=== PATIENT | female | born 1970 | race Caucasian/White ===

== ENCOUNTER → 2018-06-28 | Outpatient (REF) | payer BC ==
[2018-06-28 12:20] LABS: BASO % 0.6 % (0.0-1.0); EOS # 0.1 10^3/uL (0.0-0.50); EOS % 2.7 % (0.0-3.0); HEMATOCRIT 41.9 % (36.0-47.0); HEMOGLOBIN 13.7 g/dl (12.0-15.5); LYMPH # 1.7 10^3/uL (1.5-4.5); LYMPH % 35.3 % (24.0-44.0); MEAN CORPUSCULAR HEMOGLOBIN 30.2 pg (27.0-33.0); MEAN CORPUSCULAR HGB CONC 32.7 g/dl (32.0-36.5); MEAN CORPUSCULAR VOLUME 92.5 fl (80.0-96.0); MONO # 0.3 10^3/uL (0.0-0.8); MONO % 6.8 % (0.0-5.0); NEUTROPHILS # 2.7 10^3/uL (1.8-7.7); NEUTROPHILS % 54.4 % (36.0-66.0); PLATELET COUNT, AUTOMATED 210 10^3/uL (150-450); RED BLOOD COUNT 4.53 10^6/uL (4.00-5.40); WHITE BLOOD COUNT 4.9 10^3/uL (4.0-10.0)
[2018-06-28 12:28] LABS: ALBUMIN 3.6 GM/DL (3.2-5.2); ALT/SGPT 32 U/L (12-78); BILIRUBIN,TOTAL 0.3 MG/DL (0.2-1.0); BLOOD UREA NITROGEN 13 MG/DL (7-18); CALCIUM LEVEL 8.2 MG/DL (8.5-10.1); CARBON DIOXIDE LEVEL 27 MEQ/L (21-32); CHLORIDE LEVEL 110 MEQ/L (98-107); CREATININE FOR GFR 0.71 MG/DL (0.55-1.30); GLOMERULAR FILTRATION RATE > 60.0 (>58); GLUCOSE, FASTING 85 MG/DL (70-100); POTASSIUM SERUM 4.1 MEQ/L (3.5-5.1); SODIUM LEVEL 141 MEQ/L (136-145); TOTAL PROTEIN 6.9 GM/DL (6.4-8.2)
== END ==
LOC: M SFHCPLAZ 09:50
PROVIDERS: ATTEND Physician Assistant Medical
DX: R19.7 Diarrhea, unspecified (principal)

== ENCOUNTER → 2018-06-29 | Outpatient (REF) | payer BC | LOC: M SFHCPLAZ 13:17 | PROVIDERS: ATTEND Physician Assistant Medical | DX: R19.7 Diarrhea, unspecified (principal) ==

== ENCOUNTER → 2018-06-30 | Outpatient (REF) | payer BC ==
[2018-06-30 12:41] LABS: ALBUMIN 3.3 GM/DL (3.2-5.2); ALT/SGPT 26 U/L (12-78); BILIRUBIN,TOTAL 0.3 MG/DL (0.2-1.0); BLOOD UREA NITROGEN 12 MG/DL (7-18); CARBON DIOXIDE LEVEL 25 MEQ/L (21-32); CHLORIDE LEVEL 110 MEQ/L (98-107); CHOLESTEROL LEVEL 158 MG/DL (<200); CREATININE FOR GFR 0.58 MG/DL (0.55-1.30); GLOMERULAR FILTRATION RATE > 60.0 (>58); GLUCOSE, FASTING 88 MG/DL (70-100); HDL CHOLESTEROL 40 MG/DL (>40); LDL CHOLESTEROL 103 MG/DL (<100); NON-HDL-C 118 MG/DL; POTASSIUM SERUM 3.6 MEQ/L (3.5-5.1); SODIUM LEVEL 141 MEQ/L (136-145); TOTAL PROTEIN 6.4 GM/DL (6.4-8.2); TRIGLYCERIDES LEVEL 77 MG/DL (<150)
[2018-06-30 13:59] LABS: HEMATOCRIT 40.5 % (36.0-47.0); HEMOGLOBIN 13.2 g/dl (12.0-15.5); MEAN CORPUSCULAR HEMOGLOBIN 30.3 pg (27.0-33.0); MEAN CORPUSCULAR HGB CONC 32.6 g/dl (32.0-36.5); MEAN CORPUSCULAR VOLUME 93.1 fl (80.0-96.0); PLATELET COUNT, AUTOMATED 194 10^3/uL (150-450); RED BLOOD COUNT 4.35 10^6/uL (4.00-5.40); WHITE BLOOD COUNT 3.9 10^3/uL (4.0-10.0)
[2018-06-30 15:30] LABS: HEMOGLOBIN A1c 5.5 %
== END ==
LOC: M SFHCPLAZ 08:39
PROVIDERS: ATTEND Family Medicine
DX: N92.0 Excessive and frequent menstruation with regular cycle (principal); Z13.220 Encounter for screening for lipoid disorders; Z13.1 Encounter for screening for diabetes mellitus

== ENCOUNTER → 2018-07-06 | Outpatient (REF) | payer BC ==
[2018-07-08 14:36] LABS: HPV HYBRID CAPTURE II Negative (Negative)
== END ==
LOC: M SFHCPLAZ 10:06
PROVIDERS: ATTEND Family Medicine
DX: Z12.4 Encounter for screening for malignant neoplasm of cervix (principal)
CPT/HCPCS: 87624; G0123

== ENCOUNTER → 2018-07-29 | Outpatient (CLI) | payer BC ==
--- NOTE | 2018-07-30 03:23 | REP ---
Clinical: Menorrhagia . Technique: Transabdominal pelvic ultrasound followed by transvaginal examination for better evaluation of the endometrium and adnexa with color Doppler evaluation of the ovaries. Findings: Bladder is unremarkable and measures 10.9 x 8.9 x 9.1 cm . Normal anteverted uterus measures 8.8 x 4.4 x 5.4 cm . The endometrial complex measures 9.2 mm thickness. No discrete uterine or endometrial abnormalities are appreciated. Incidental Nabothian cyst noted. Bilateral ovaries are normal in appearance. Right ovary measures 2.0 x 2.1 x 1.4 cm ; Left ovary measures 2.2 x 1.6 x 2.0 cm. No pelvic free fluid or adnexal mass lesion Impression: 1. Nabothian cysts. 2. Otherwise normal pelvic ultrasound.
--- NOTE | 2018-07-30 10:58 | REPMRS ---
Patient History The patient states she had a clinical breast exam in 06/2018. Family history of breast cancer at age 50 or over in maternal aunt, breast cancer at age 50 or over in maternal aunt, colorectal cancer at age 50 or over in maternal grandfather, prostate cancer at age 50 or over in father. 3D TOMOSYNTHESIS WAS PERFORMED. Digital Woman Screen Mammo: July 29, 2018 - Exam #: [id number] Bilateral CC and MLO view(s) were taken. Technologist: Lizbeth Gandhi, Technologist FINDINGS: The breast tissue is extremely dense which could obscure a lesion on mammography. There is no evidence of cancer on this mammogram. Assessment: BI-RADS/ACR category 2 mammogram. Benign Findings. Recommendation Routine screening mammogram of both breasts in 1 year (for women over age 40). This mammogram was interpreted with the aid of an FDA-approved computer-aided dectection system. Electronically Signed By: Raza Weeks MD 07/30/18 [id number]
== END ==
LOC: M WHC 08:20
PROVIDERS: ATTEND Family Medicine
DX: Z12.31 Encounter for screening mammogram for malignant neoplasm of breast (principal); N92.0 Excessive and frequent menstruation with regular cycle; N88.8 Other specified noninflammatory disorders of cervix uteri

== ENCOUNTER → 2018-08-02 | Outpatient (CLI) | payer BC ==
[~2018-08-02] MED LIST: E-Z-GAS II EFFERVESCENT PACKET (SODIUM BICARB./CITRIC ACID/SIMETHICONE) As Ordered ONE; E-Z-HD 98% w/w 340GM SUSP BTL As Ordered ONE; E-Z-PAQUE 96% w/w SUSP 176GM BTL As Ordered ONE
--- NOTE | 2018-08-03 10:18 | REP ---
Examination Requested: Esophagram Barium Swallow Reason For Exam/Comment: GERD Esophagram: The procedure was performed YKLER Siegel, under the direct supervision of Dr. Weeks. The images were reviewed with Dr. Weeks. A single PA chest x-ray is submitted as a braille translator film. The superior mediastinal structures are midline. The heart size is within normal limits. The lungs are clear. Liquid barium and gas producing granules were given in the erect position as well as liquid barium in the prone oblique positions in order to perform a double contrast esophagram examination. Oral and pharyngeal stages of the examination were unremarkable. Esophageal transport is efficient and there is no esophagitis, stricture, or mucosal ring noted. There is no hiatal hernia noted. Gastroesophageal reflux is demonstrated past the level of the ernestine. Impression: 1. Gastroesophageal reflux noted past the level of the ernestine. 0.6 minutes of fluoroscopy time was utilized for this procedure. Reviewed by KYLER Goetz 08/02/2018 05:35 P Electronically Signed by Raza Weeks MD 08/03/2018 10:09 A
== END ==
LOC: M RAD 08:41
PROVIDERS: ATTEND Internal Medicine Gastroenterology
DX: K21.9 Gastro-esophageal reflux disease without esophagitis (principal)

== ENCOUNTER → 2018-08-26 | Outpatient (CLI) | payer BC ==
[~2018-08-26] MED LIST changes: +CALC600T5 PO; +CELE40TA PO; -E-Z-GAS II EFFERVESCENT PACKET (SODIUM BICARB./CITRIC ACID/SIMETHICONE) As Ordered ONE; -E-Z-HD 98% w/w 340GM SUSP BTL As Ordered ONE; -E-Z-PAQUE 96% w/w SUSP 176GM BTL As Ordered ONE; +GASTROGRAFIN SOLUTION 30ML (Q9963) As Ordered ONE; +GNP250TA9 PO; +ISOVUE-370 76% 100ML VIAL (Q9967) As Ordered ONE; +MULTCAP PO; +PANT40TA3 PO; +VITA500T3 PO
[2018-08-26 10:39] LABS: BASO % 0.4 % (0.0-1.0); EOS # 0.1 10^3/uL (0.0-0.50); EOS % 1.5 % (0.0-3.0); HEMATOCRIT 39.7 % (36.0-47.0); LYMPH # 1.6 10^3/uL (1.5-4.5); LYMPH % 20.9 % (24.0-44.0); MEAN CORPUSCULAR HGB CONC 32.7 g/dl (32.0-36.5); MEAN CORPUSCULAR VOLUME 91.7 fl (80.0-96.0); MONO # 0.5 10^3/uL (0.0-0.8); MONO % 6.9 % (0.0-5.0); NEUTROPHILS # 5.3 10^3/uL (1.8-7.7); PLATELET COUNT, AUTOMATED 193 10^3/uL (150-450); RED BLOOD COUNT 4.33 10^6/uL (4.00-5.40); WHITE BLOOD COUNT 7.6 10^3/uL (4.0-10.0)
[2018-08-26 10:54] LABS: APPEARANCE, URINE CLEAR (CLEAR); BACTERIA, URINE AUTO NEGATIVE (NEGATIVE); BILIRUBIN, URINE AUTO NEGATIVE (NEGATIVE); BLOOD, URINE BLOOD 1+ (NEGATIVE); COLOR, URINE YELLOW (YELLOW); GLUCOSE, URINE (UA) AUTO NEGATIVE (NEGATIVE); KETONE, URINE AUTO NEGATIVE (NEGATIVE); LEUKOCYTE ESTERASE, URINE AUTO NEGATIVE (NEGATIVE); MUCUS, URINE SMALL (NEGATIVE); NITRITE, URINE AUTO NEGATIVE (NEGATIVE); PROTEIN, URINE AUTO NEGATIVE (NEGATIVE); RBC, URINE AUTO 3 /HPF (0-3); SPECIFIC GRAVITY URINE AUTO 1.021 (1.002-1.035); SQUAMOUS EPITHELIAL CELL UR AU 1 /HPF (0-6); UROBILINOGEN, URINE AUTO 0.2 mg/dL (0.0-2.0); WBC, URINE AUTO 1 /HPF (0-3)
[2018-08-26 11:02] LABS: ALBUMIN 3.1 GM/DL (3.2-5.2); ALT/SGPT 18 U/L (12-78); BILIRUBIN,TOTAL 0.7 MG/DL (0.2-1.0); BLOOD UREA NITROGEN 10 MG/DL (7-18); CALCIUM LEVEL 8.2 MG/DL (8.5-10.1); CARBON DIOXIDE LEVEL 27 MEQ/L (21-32); CHLORIDE LEVEL 108 MEQ/L (98-107); CREATININE FOR GFR 0.64 MG/DL (0.55-1.30); GLOMERULAR FILTRATION RATE > 60.0 (>58); GLUCOSE, FASTING 91 MG/DL (70-100); LIPASE 46 U/L (73-393); POTASSIUM SERUM 3.8 MEQ/L (3.5-5.1); SODIUM LEVEL 140 MEQ/L (136-145); TOTAL PROTEIN 7.3 GM/DL (6.4-8.2)
== END ==
LOC: M RAD 09:43
PROVIDERS: ATTEND Family Medicine
DX: R10.32 Left lower quadrant pain (principal); R30.0 Dysuria
CPT/HCPCS: 36415; 74178; 80053; 81001; 83690; 85025; 87086; Q9963; Q9967

== ENCOUNTER → 2018-09-02 | Outpatient (CLI) | payer BC ==
[~2018-09-02] MED LIST changes: -GASTROGRAFIN SOLUTION 30ML (Q9963) As Ordered ONE; -ISOVUE-370 76% 100ML VIAL (Q9967) As Ordered ONE
== END ==
LOC: M LAB 09:55
PROVIDERS: ATTEND Internal Medicine Gastroenterology
DX: B19.20 Unspecified viral hepatitis C without hepatic coma (principal); K21.9 Gastro-esophageal reflux disease without esophagitis

== ENCOUNTER → 2018-09-02 | Outpatient (REF) | payer BC ==
[2018-09-02 11:27] LABS: FREE T4 0.91 NG/DL (0.76-1.46); THYROID STIMULATING HORMONE 3.91 uIU/ML (0.358-3.740)
== END ==
LOC: M SFHCPLAZ 08:39
PROVIDERS: ATTEND Family Medicine
DX: E03.9 Hypothyroidism, unspecified (principal); E55.9 Vitamin D deficiency, unspecified

== ENCOUNTER 2018-09-25 20:28 | Emergency (ER) | payer BC ==
[~2018-09-25] VITALS: Ht 157.5 cm; Wt 90.1 kg
[~2018-09-25 20:28] MED LIST changes: +CYAN500T8 PO; -VITA500T3 PO
[2018-09-25] MEDS ORDERED: RABIES VACCINE HUMAN 2.5 INTERNATIONAL UNITS/ML VIAL (90675) IM ONE (21:30)
[2018-09-25] MEDS ORDERED: RABIES IMMUNE GLOBULIN 1500 INTERNATIONAL UNIT/5ML VIAL (90375) IM ONE ×2 (21:30→21:45)
[2018-09-25] MEDS ORDERED: RABIES IMMUNE GLOBULIN 300 INTERNATIONAL UNITS/1ML VIAL (90375) IM ONE (21:45)
[2018-09-25] MEDS ORDERED: AUGM875T28 PO (21:49)
[2018-09-25] MEDS ORDERED: AUGMENTIN 875 MG TAB PO ONE (22:00)
[2018-09-25 22:59] VITALS: BP 119/63
== END 2018-09-25 22:59 | disposition home or self-care (01) ==
LOC: M ED 20:28
DX: S60.473A Other superficial bite of left middle finger, initial encounter (principal); W55.01XA Bitten by cat, initial encounter; Y92.89 Other specified places as the place of occurrence of the external cause; J45.909 Unspecified asthma, uncomplicated; G47.33 Obstructive sleep apnea (adult) (pediatric); K21.9 Gastro-esophageal reflux disease without esophagitis; Z88.5 Allergy status to narcotic agent; Z79.899 Other long term (current) drug therapy

== ENCOUNTER 2018-09-28 10:12 | Emergency (ER) | payer BC, OTHER ==
[~2018-09-28] VITALS: Ht 157.5 cm; Wt 90.1 kg
[~2018-09-28 10:12] MED LIST changes: +AUGM875T28 PO
[2018-09-28] MEDS ORDERED: RABIES VACCINE HUMAN 2.5 INTERNATIONAL UNITS/ML VIAL (90675) IM ONE (10:45)
[2018-09-28 11:10] VITALS: BP 106/72
[2018-11-22] MEDS ORDERED: DULO1CAP5 PO (09:29)
[2018-11-22] MEDS ORDERED: SYNT25TA PO (09:29)
== END 2018-09-28 11:09 | disposition home or self-care (01) ==
LOC: M ED 10:12
DX: Z23 Encounter for immunization (principal); Z20.3 Contact with and (suspected) exposure to rabies; Z88.5 Allergy status to narcotic agent; Z79.899 Other long term (current) drug therapy

== ENCOUNTER 2018-10-02 09:24 | Emergency (ER) | payer BC ==
[~2018-10-02] VITALS: Ht 157.5 cm; Wt 89.1 kg
[2018-10-02] MEDS ORDERED: RABIES VACCINE HUMAN 2.5 INTERNATIONAL UNITS/ML VIAL (90675) IM ONE (09:45)
[2018-10-02 11:48] VITALS: BP 119/75
[2018-10-02] MEDS ORDERED: VANC1CAP6 PO (14:41)
== END 2018-10-02 11:50 | disposition home or self-care (01) ==
LOC: M ED 09:44
DX: Z23 Encounter for immunization (principal); Z20.3 Contact with and (suspected) exposure to rabies; R19.7 Diarrhea, unspecified; F33.9 Major depressive disorder, recurrent, unspecified; F41.9 Anxiety disorder, unspecified; G47.30 Sleep apnea, unspecified; Z99.89 Dependence on other enabling machines and devices; Z79.899 Other long term (current) drug therapy; Z88.5 Allergy status to narcotic agent

== ENCOUNTER 2018-10-09 10:43 | Emergency (ER) | payer BC, OTHER ==
[~2018-10-09] VITALS: Ht 157.5 cm; Wt 89.1 kg
[~2018-10-09 10:43] MED LIST changes: +VANC1CAP6 PO
[2018-10-09 10:44] VITALS: BP 123/80
[2018-10-09] MEDS ORDERED: RABIES VACCINE HUMAN 2.5 INTERNATIONAL UNITS/ML VIAL (90675) IM ONE (11:00)
== END 2018-10-09 11:21 | disposition home or self-care (01) ==
LOC: M ED 10:43
DX: Z23 Encounter for immunization (principal); Z20.3 Contact with and (suspected) exposure to rabies; K21.9 Gastro-esophageal reflux disease without esophagitis; Z72.0 Tobacco use; Z79.899 Other long term (current) drug therapy; Z88.5 Allergy status to narcotic agent

== ENCOUNTER → 2018-10-21 | Outpatient (REF) | payer BC ==
[2018-10-21 11:12] LABS: APPEARANCE, URINE CLEAR (CLEAR); BACTERIA, URINE AUTO NEGATIVE (NEGATIVE); BILIRUBIN, URINE AUTO NEGATIVE (NEGATIVE); BLOOD, URINE BLOOD NEGATIVE (NEGATIVE); COLOR, URINE STRAW (YELLOW); GLUCOSE, URINE (UA) AUTO NEGATIVE (NEGATIVE); KETONE, URINE AUTO NEGATIVE (NEGATIVE); LEUKOCYTE ESTERASE, URINE AUTO NEGATIVE (NEGATIVE); NITRITE, URINE AUTO NEGATIVE (NEGATIVE); PROTEIN, URINE AUTO NEGATIVE (NEGATIVE); RBC, URINE AUTO 1 /HPF (0-3); SPECIFIC GRAVITY URINE AUTO 1.006 (1.002-1.035); SQUAMOUS EPITHELIAL CELL UR AU 1 /HPF (0-6); UROBILINOGEN, URINE AUTO 0.2 mg/dL (0.0-2.0); WBC, URINE AUTO 0 /HPF (0-3)
== END ==
LOC: M SFHCPLAZ 08:06
PROVIDERS: ATTEND Family Medicine
DX: E03.9 Hypothyroidism, unspecified (principal); N39.44 Nocturnal enuresis

== ENCOUNTER → 2018-11-03 | Outpatient (CLI) | payer BC ==
--- NOTE | 2018-11-08 10:54 | SLEEPCENT ---
DATE OF PROCEDURE: 11/17/2018 ORDERED BY: Kaylie Parikh NP Nocturnal polysomnography was performed for the titration of pressure therapy in this patient with obstructive sleep apnea syndrome. Apnea-hypopnea index 25.8. For testing, a ResMed Quattro Mirage full face mask of small size was used, 4 cm of water pressure were applied to the circuit, and the lights were extinguished. 7 hours and 16 minutes of data were reviewed. There were 390 minutes of sleep identified. Sleep latency was short at 4.5 minutes. Rapid eye movement (REM) latency was mildly prolonged at 159 minutes. Sleep architecture improved with optimal pressure therapy. Overall sleep efficiency was 92.6%. The patient's electrocardiogram showed sinus rhythm with an average heart rate of 62 beats per minute. Electroencephalogram (EEG) showed normal waveforms for awake and sleep. Respiratory events were fully palliated with C-PAP to a pressure of +12. There was some limb activity noted in the EMG leads. Limb movement arousal index on this occasion was 12.1. IMPRESSION: Obstructive sleep apnea syndrome (G47.33). RECOMMENDATIONS: Nightly use of pressure therapy 12 cm of water.
== END ==
LOC: M SLEEP 20:00
PROVIDERS: ATTEND Nurse Practitioner Family
DX: G47.33 Obstructive sleep apnea (adult) (pediatric) (principal); R06.83 Snoring

== ENCOUNTER 2018-12-06 11:10 | Day surgery (SDC) | payer BC ==
[~2018-12-06] VITALS: Ht 157.5 cm; Wt 89.8 kg
[~2018-12-06 11:10] MED LIST changes: +DULO1CAP5 PO; +NS 1,000 ML IV ONE; +SYNT25TA PO
[2018-12-06] MEDS ORDERED: LIDOCAINE 2% INJ 100 MG/5 ML SDV (FOR ANES.) As Ordered ONE (11:56)
[2018-12-06] MEDS ORDERED: PROPOFOL 500 MG/50 ML VIAL As Ordered ONE (11:56)
[2018-12-06] MEDS ORDERED: fentaNYL 100 MCG/2 ML INJECTION (J3010) As Ordered ONE (13:18)
--- NOTE | 2018-12-06 13:34 | ROOR ---
Patient Name: Shari Hyatt Procedure Date: 12/06/2018 1:21 PM Date of : 1970 Age: 48 Room: [facility] Gender: Female Note Status: Finalized Procedure: Upper GI endoscopy Indications: Heartburn Providers: Aaron RAMIREZ MD Referring MD: Rochelle Duncan MD Requesting Provider: Medicines: Monitored Anesthesia Care Complications: No immediate complications. Procedure: Pre-Anesthesia Assessment: - The heart rate, respiratory rate, oxygen saturations, blood pressure, adequacy of pulmonary ventilation, and response to care were monitored throughout the procedure. The Endoscope was introduced through the mouth, and advanced to the second part of duodenum. The upper GI endoscopy was accomplished without difficulty. The patient tolerated the procedure well. Findings: Non-severe esophagitis was found at the gastroesophageal junction. No endoscopic abnormality was evident in the esophagus to explain the patient's complaint of dysphagia. The entire examined stomach was normal. The examined duodenum was normal. Impression: - Mild reflux esophagitis. - No endoscopic esophageal abnormality to explain patient's dysphagia. - Normal stomach. - Normal examined duodenum. - No specimens collected. Recommendation: - Use Zantac (ranitidine) 150 mg PO BID. - Follow an antireflux regimen. Aaron Ramirez MD Aaron RAMIREZ MD 12/06/2018 1:34:22 PM Electronically signed by Aaron RAMIREZ MD Number of Addenda: 0 Note Initiated On: 12/06/2018 1:21 PM Estimated Blood Loss: Estimated blood loss: none.
--- NOTE | 2018-12-06 13:48 | ROOR ---
Patient Name: Shari Hyatt Procedure Date: 12/06/2018 1:22 PM Date of : 1970 Age: 48 Room: [facility] Gender: Female Note Status: Finalized Procedure: Colonoscopy Indications: Abnormal CT of the GI tract, Follow-up of diverticulitis Providers: Aaron RAMIREZ MD Referring MD: Rochelle Duncan MD Requesting Provider: Medicines: Monitored Anesthesia Care Complications: No immediate complications. Procedure: Pre-Anesthesia Assessment: - The heart rate, respiratory rate, oxygen saturations, blood pressure, adequacy of pulmonary ventilation, and response to care were monitored throughout the procedure. The Colonoscope was introduced through the anus and advanced to 10 cm into the ileum. The colonoscopy was performed without difficulty. The patient tolerated the procedure well. The quality of the bowel preparation was good. Findings: The perianal and digital rectal examinations were normal. Mild sigmoid diverticulosis and small internal hemorrhoids. The entire examined colon appeared normal on direct and retroflexion views. The terminal ileum appeared normal. Impression: - Minimal sigmoid diverticulosis and small internal hemorrhoids. - The entire colon is otherwise normal on direct and retroflexion views. - The examined portion of the ileum was normal. - No specimens collected. Recommendation: - Use fiber, for example Citrucel, Fibercon, Konsyl or Metamucil. Aaron Ramirez MD Aaron RAMIREZ MD 12/06/2018 1:47:15 PM Electronically signed by Aaron RAMIREZ MD Number of Addenda: 0 Note Initiated On: 12/06/2018 1:22 PM Estimated Blood Loss: Estimated blood loss: none.
[2018-12-06 14:20] VITALS: BP 129/80
== END 2018-12-06 14:33 | disposition home or self-care (01) ==
LOC: M OPP 11:10
PROVIDERS: ATTEND Internal Medicine Gastroenterology
DX: K57.30 Diverticulosis of large intestine without perforation or abscess without bleeding (principal); K64.8 Other hemorrhoids; R93.3 Abnormal findings on diagnostic imaging of other parts of digestive tract; K21.0 Gastro-esophageal reflux disease with esophagitis; R13.10 Dysphagia, unspecified; R12 Heartburn; G47.30 Sleep apnea, unspecified; Z79.899 Other long term (current) drug therapy; Z88.5 Allergy status to narcotic agent
CPT/HCPCS: 43235; 45378; J3010

== ENCOUNTER → 2019-01-05 | Outpatient (REF) | payer BC ==
[~2019-01-05] MED LIST changes: -NS 1,000 ML IV ONE
== END ==
LOC: M LAB REF 17:42
PROVIDERS: ATTEND Obstetrics & Gynecology
DX: N93.9 Abnormal uterine and vaginal bleeding, unspecified (principal)

== ENCOUNTER → 2019-01-22 | Outpatient (CLI) | payer BC ==
[~2019-01-22] MED LIST changes: +IBUP1TAB7 PO; +OXYC1TAB23 PO
--- NOTE | 2019-01-22 18:45 | ECGEPIP ---
[facility] Test Date: 2019-01-22 Pat Name: STEPHANIE PRESTON Department: Room: - Gender: Female Business Dean: SHAQ : 1970 Requested By: Mathieu Manning Order Number: [id number] Reading MD: Aaron Masters Measurements Intervals [place] Rate: 72 P: 62 GA: 167 QRS: -23 QRSD: 84 T: 25 QT: 407 QTc: 447 Interpretive Statements SINUS RHYTHM LEFT AXIS DEVIATION LOW QRS VOLTAGES, Poor R wave progression. Baseline noise V5 & V6. No prior ECG available for comparison at the time of interpretation. Electronically Signed on 01-22-2019 18:45:41 EDT by Aaron Masters
== END ==
LOC: M EKG 08:41
PROVIDERS: ATTEND Anesthesiology
DX: Z01.818 Encounter for other preprocedural examination (principal); R94.31 Abnormal electrocardiogram [ECG] [EKG]; E03.9 Hypothyroidism, unspecified

== ENCOUNTER 2019-01-25 06:00 | Day surgery (SDC) | payer BC ==
[~2019-01-25] VITALS: Ht 157.5 cm; Wt 92.3 kg
[~2019-01-25 06:00] MED LIST changes: -IBUP1TAB7 PO; +LR 1,000 ML IV ONE; -OXYC1TAB23 PO
[2019-01-25] MEDS ORDERED: MULTCAP PO (06:20)
[2019-01-25 06:27] LABS: HEMATOCRIT 40.8 % (36.0-47.0); HEMOGLOBIN 13.6 g/dl (12.0-15.5); MEAN CORPUSCULAR HGB CONC 33.3 g/dl (32.0-36.5); MEAN CORPUSCULAR VOLUME 92.9 fl (80.0-96.0); PLATELET COUNT, AUTOMATED 212 10^3/uL (150-450); RED BLOOD COUNT 4.39 10^6/uL (4.00-5.40); WHITE BLOOD COUNT 4.5 10^3/uL (4.0-10.0)
[2019-01-25] MEDS ORDERED: fentaNYL 100 MCG/2 ML INJECTION (J3010) As Ordered ONE (07:07)
[2019-01-25] MEDS ORDERED: LIDOCAINE 2% INJ 100 MG/5 ML SDV (FOR ANES.) As Ordered ONE (07:07)
[2019-01-25] MEDS ORDERED: PROPOFOL 200 MG/20 ML VIAL As Ordered ONE ×2 (07:07→08:05)
[2019-01-25] MEDS ORDERED: MIDAZOLAM INJ 2 MG/2 ML VIAL (J2250) As Ordered ONE (07:07)
[2019-01-25] MEDS ORDERED: dexameTHASONE 4 MG/ML 1ML VIAL (J1100) As Ordered ONE (07:50)
[2019-01-25] MEDS ORDERED: ONDANSETRON 4MG/2ML VIAL (J2405) As Ordered ONE ×2 (07:50→10:12)
[2019-01-25] MEDS ORDERED: KETOROLAC 60 MG/2 ML VIAL (J1885) As Ordered ONE (08:06)
[2019-01-25] MEDS ORDERED: OXYC1TAB23 PO (08:28)
[2019-01-25] MEDS ORDERED: IBUP1TAB7 PO (08:28)
[2019-01-25] MEDS ORDERED: ONDANSETRON 4MG/2ML VIAL (J2405) IV PRN (08:45)
[2019-01-25] MEDS ORDERED: LR 1,000 ML IV SCH ×2 (08:45→09:46)
[2019-01-25] MEDS: oxyCODONE 5MG TAB PO PRN ×2 (08:57→09:28)
[2019-01-25] MEDS: fentaNYL 100 MCG/2 ML INJECTION (J3010) IV PRN ×2 (09:05→09:10)
--- NOTE | 2019-01-25 09:17 | RO ---
DATE OF PROCEDURE: 01/25/2019 PREOPERATIVE DIAGNOSIS: Abnormal uterine bleeding. POSTOPERATIVE DIAGNOSIS: Abnormal uterine bleeding. PROCEDURE PERFORMED: Hysteroscopy dilatation and curettage, NovaSure endometrial ablation. SURGEON: Christo Bernardo DO SYSTEMS SOFTWARE ENGINEER: None. ANESTHESIA TYPE: General via laryngeal mask airway (LMA). SPECIMENS TO PATHOLOGY: Endometrial curettings. ESTIMATED BLOOD LOSS: 5 mL. FLUIDS REPLACED: 1 liter Lactated Ringer's. DRAINS: In and out catheter 100 mL. COMPLICATIONS: None. PREOPERATIVE ANTIBIOTICS: None indicated. INTRAOPERATIVE FINDINGS: Uterine cavity length 6.5 cm, width 3.4 cm. Ablation time 70 seconds at 122 rodriguez. Hysteroscopic findings pre-ablation: no intrauterine mass detected. No evidence of uterine perforation. Post ablation hysteroscopic findings: global ablation noted and again no uterine masses and no evidence of uterine perforation. INDICATION: The patient is a 48-year-old with abnormal uterine bleeding. Preoperative assessment deemed her a good candidate for an endometrial ablation. She has chosen to proceed with this procedure over other options. Preoperative endometrial tissue assessment: benign. PROCEDURE: The patient was counseled and consented on the risks, benefits, indications and alternatives to the procedure. Informed consent was obtained. She was taken to the operating room with an IV running and placed on operating table in the dorsal supine position. General anesthesia was administered and the airway was secured without any difficulty. She was placed in the high lithotomy position. A time out was performed per protocol. She was prepared and draped in a normal sterile fashion. The bladder was drained with an in and out sterile catheter. A speculum was placed with good visualization of the cervix. The anterior lip of the cervix was grasped with a single-tooth tenaculum downward traction was applied. The uterus was sounded to 8 cm, thus giving a cavity length of 6.5 cm given the cervical length of 1.5cm. The cervix was sequentially dilated with Lenny dilators up to #15. The hysteroscope was placed transcervically into the intrauterine cavity with findings noted above. Given the normal uterine cavity, the hysteroscope was removed. Light curettage was performed throughout the cavity. The tissue was sent to pathology for permanent section. The NovaSure device was placed transcervically into the intrauterine cavity and deployed. The cavity width assessment was performed. The cavity assessment was activated. The cavity assessment passed and the NovaSure device was activated. Total ablation time was 70 seconds. The NovaSure device was removed in a typical fashion. Charred tissue was noted on both sides of the mesh after the NovaSure device was removed and inspected. The hysteroscope was placed transcervically into the intrauterine cavity with findings noted above. Given the lack of any evidence of a complication and global ablation was noted throughout the cavity, decision was made to conclude the procedure. The hysteroscope was removed. The single-tooth tenaculum was removed from the anterior lip of the cervix. Tenaculum sites were noted be hemostatic. Minimal bleeding from the cervical os was noted. All instruments removed from the vagina. Sponge, needle and instrument counts were correct per protocol. The patient tolerated the entire procedure well. She was transferred to the postanesthesia care unit (PACU) in good and stable condition. MONO
[2019-01-25] MEDS ORDERED: MORPHINE 2 MG/ML 1ML VIAL (J2270) As Ordered ONE (11:21)
[2019-01-25] MEDS: MORPHINE 2 MG/ML 1ML VIAL (J2270) IV PRN ×2 (11:27→11:52)
[2019-01-25] MEDS ORDERED: MORPHINE 10 MG/ML 1ML VIAL (J2270) IV PRN (11:30)
[2019-01-25 12:15] VITALS: BP 135/80
== END 2019-01-25 12:45 | disposition home or self-care (01) ==
LOC: M SDC 06:00
PROVIDERS: ATTEND Obstetrics & Gynecology
DX: N93.9 Abnormal uterine and vaginal bleeding, unspecified (principal); E03.9 Hypothyroidism, unspecified; K21.9 Gastro-esophageal reflux disease without esophagitis; F32.9 Major depressive disorder, single episode, unspecified; K57.32 Diverticulitis of large intestine without perforation or abscess without bleeding; M12.9 Arthropathy, unspecified; F41.9 Anxiety disorder, unspecified; G43.909 Migraine, unspecified, not intractable, without status migrainosus; J45.909 Unspecified asthma, uncomplicated; G47.33 Obstructive sleep apnea (adult) (pediatric); Z88.5 Allergy status to narcotic agent; Z79.899 Other long term (current) drug therapy; Z86.19 Personal history of other infectious and parasitic diseases; Z98.51 Tubal ligation status; Z68.37 Body mass index [BMI] 37.0-37.9, adult
CPT/HCPCS: 36415; 58563; 85027; 86850; 86900; 86901; 88305; J1100; J1885; J2250; J2270; J2405; J3010

== ENCOUNTER → 2019-03-25 | Outpatient (CLI) | payer BC ==
[~2019-03-25] MED LIST changes: +IBUP1TAB7 PO; +ISOVUE-370 76% 100ML VIAL (Q9967) As Ordered ONE; -LR 1,000 ML IV ONE; +OXYC1TAB23 PO
--- NOTE | 2019-03-25 10:03 | REP ---
Clinical: Lung nodule. Technique: Axial contrast enhanced images from the thoracic inlet to the upper abdomen with coronal and sagittal re-formations. Comparison: None. Findings: 6 mm noncalcified nodule in the periphery of the left lower lobe (image 72) remains stable and a second 5 mm noncalcified nodule in the periphery of the left lower lobe (image 69) remains stable as well. 7 mm noncalcified nodule noted in the periphery of the anterior right upper lobe (image 47) and 4 mm noncalcified nodule in the periphery of the right lower lobe (image 47) are also identified. No further nodule or mass lesion. No consolidation. No effusion. No pneumothorax. Tracheobronchial tree is patent. No axillary, hilar, or mediastinal adenopathy is appreciated. Mediastinum demonstrates normal thoracic aorta, pulmonary vasculature and heart/pericardium. Surrounding musculoskeletal structures are intact and normal. Limited upper abdomen demonstrates diffuse hepatic steatosis and normal bilateral adrenal glands. Impression: 1. Few scattered noncalcified nodules likely reflect sequelae from prior granulomas disease. No adenopathy. Consider follow-up examination at 6-9 months to confirm stability and benignity. Electronically Signed by James Rain MD 03/25/2019 09:55 A
== END ==
LOC: M RAD 09:00
PROVIDERS: ATTEND Family Medicine
DX: R91.1 Solitary pulmonary nodule (principal)
CPT/HCPCS: 71260; Q9967

== ENCOUNTER → 2019-05-12 | Outpatient (REF) | payer BC ==
[~2019-05-12] MED LIST changes: -ISOVUE-370 76% 100ML VIAL (Q9967) As Ordered ONE
[2019-05-12 11:54] LABS: FREE T4 0.85 NG/DL (0.76-1.46); THYROID STIMULATING HORMONE 2.11 uIU/ML (0.358-3.740); TOTAL 25(OH) VITAMIN D 26.8 NG/ML (30.0-100.0)
== END ==
LOC: M SFHCPLAZ 08:34
PROVIDERS: ATTEND Family Medicine
DX: E03.9 Hypothyroidism, unspecified (principal); E55.9 Vitamin D deficiency, unspecified

== ENCOUNTER 2019-11-24 00:53 | Emergency (ER) | payer BC, MEDICAID, OTHER ==
[~2019-11-24] VITALS: Ht 157.5 cm; Wt 99.4 kg
[~2019-11-24 00:53] MED LIST changes: -CALC600T5 PO; +CALC600T61 PO; +PANT40TA29 PO; -PANT40TA3 PO
[2019-11-24] MEDS ORDERED: BUSP15TA47 PO (01:03)
[2019-11-24] MEDS ORDERED: VIIB40TA PO (01:03)
[2019-11-24 01:55] LABS: BASO % 0.4 % (0.0-1.0); EOS # 0.2 10^3/uL (0.0-0.5); HEMATOCRIT 41.1 % (36.0-47.0); LYMPH # 2.2 10^3/uL (1.5-5.0); LYMPH % 24.3 % (24.0-44.0); MEAN CORPUSCULAR HEMOGLOBIN 31.1 pg (27.0-33.0); MEAN CORPUSCULAR HGB CONC 34.1 g/dl (32.0-36.5); MEAN CORPUSCULAR VOLUME 91.3 fl (80.0-96.0); MONO # 0.6 10^3/uL (0.0-0.8); MONO % 6.9 % (0.0-5.0); NEUTROPHILS # 5.9 10^3/uL (1.5-8.5); NEUTROPHILS % 66.2 % (36.0-66.0); PLATELET COUNT, AUTOMATED 202 10^3/uL (150-450)
[2019-11-24] MEDS ORDERED: NS 1,000 ML IV ONE (02:15)
[2019-11-24] MEDS ORDERED: MORPHINE 4 MG/ML 1ML VIAL/SYRINGE (J2270) IV ONE (02:15)
[2019-11-24 02:39] LABS: ALBUMIN 3.3 GM/DL (3.2-5.2); ALT/SGPT 25 U/L (12-78); BILIRUBIN,DIRECT < 0.1 MG/DL (0.0-0.2); BILIRUBIN,TOTAL 0.2 MG/DL (0.2-1.0); BLOOD UREA NITROGEN 12 MG/DL (7-18); CALCIUM LEVEL 8.6 MG/DL (8.5-10.1); CARBON DIOXIDE LEVEL 24 MEQ/L (21-32); CHLORIDE LEVEL 111 MEQ/L (98-107); CREATININE FOR GFR 0.83 MG/DL (0.55-1.30); GLOMERULAR FILTRATION RATE > 60.0 (>51); GLUCOSE, FASTING 123 MG/DL (70-100); LIPASE 60 U/L (73-393); POTASSIUM SERUM 3.9 MEQ/L (3.5-5.1); SODIUM LEVEL 144 MEQ/L (136-145); TOTAL PROTEIN 6.7 GM/DL (6.4-8.2)
[2019-11-24] MEDS ORDERED: ISOVUE-370 76% 100ML VIAL As Ordered ONE (03:00)
--- NOTE | 2019-11-24 03:54 | REPVR ---
PROCEDURE INFORMATION: Exam: CT Abdomen And Pelvis With Contrast Exam date and time: 11/24/2019 2:54 AM Age: 49 years old Clinical indication: Abdominal pain; Localized; Left lower quadrant (llq); Additional info: Llq pain TECHNIQUE: Imaging protocol: Computed tomography of the abdomen and pelvis with intravenous contrast. Radiation optimization: All CT scans at this facility use at least one of these dose optimization techniques: automated exposure control; mA and/or kV adjustment per patient size (includes targeted exams where dose is matched to clinical indication); or iterative reconstruction. Contrast material: ISO; Contrast volume: 100 ml; Contrast route: INTRAVENOUS (IV); COMPARISON: CT ABD PELVIS W/O FOL BY WIT 08/26/2018 11:32 AM FINDINGS: Lungs: Stable 2 nodules in the anter left lower lobe of the lung. Liver: Heterogen diffuse fatty infiltration of the liver with areas of sparing. Gallbladder and bile ducts: Normal. No calcified stones. No ductal dilation. Pancreas: Normal. No ductal dilation. Spleen: Normal. No splenomegaly. Adrenals: Normal. No mass. Kidneys and ureters: Normal. No hydronephrosis. Stomach and bowel: Mild thickening, diverticula, and mild surrounding inflammation of the proximal sigmoid colon representing diverticulitis/colitis. No perforation. No abscess formation. Small bowel is unremarkable. Appendix: Appendix is not seen. Intraperitoneal space: Trace free fluid in the pelvis. Vasculature: Unremarkable. No abdominal aortic aneurysm. Lymph nodes: Unremarkable. No enlarged lymph nodes. Bladder: Unremarkable as visualized. Reproductive: Dominant follicle in the left ovary measuring 13.4 mm. Prominence of the endometrial canal likely related to menstrual cycle. Air in the vagina. Low-attenuation area with irregular margins in the right ovary measuring 12.3 mm likely ruptured follicle. Bones/joints: Unremarkable. No acute fracture. Soft tissues: Unremarkable. IMPRESSION: Mild thickening, diverticula, and mild surrounding inflammation of the proximal sigmoid colon representing diverticulitis/colitis. No perforation. No abscess formation. Electronically signed by: Niki Ng On 11/24/2019 03:54:23 AM
[2019-11-24] MEDS ORDERED: CIPROFLOXACIN 400 MG in IV 1 EA IV ONE (04:00)
[2019-11-24] MEDS ORDERED: metroNIDAZOLE 500 MG in IV 1 EA IV ONE (04:00)
[2019-11-24] MEDS ORDERED: FLAG500T PO (04:09)
[2019-11-24] MEDS ORDERED: CIPR-249 PO (04:09)
[2019-11-24] MEDS ORDERED: NORCO 5/325MG TABLET (BULK FOR ED) PO ONE (04:15)
[2019-11-24] MEDS ORDERED: MORPHINE 2 MG/ML 1ML VIAL (J2270) IV ONE (05:30)
[2019-11-24] MEDS ORDERED: METOCLOPRAMIDE INJ 10MG/2ML VIAL (J2765 PER 1) As Ordered ONE (05:45)
[2019-11-24] MEDS ORDERED: METOCLOPRAMIDE INJ 10MG/2ML VIAL (J2765 PER 1) IV ONE (05:45)
[2019-11-24 06:30] VITALS: BP 103/65
== END 2019-11-24 07:12 | disposition home or self-care (01) ==
LOC: M ED 00:53
DX: K57.32 Diverticulitis of large intestine without perforation or abscess without bleeding (principal); F32.9 Major depressive disorder, single episode, unspecified; E66.9 Obesity, unspecified; Z79.899 Other long term (current) drug therapy; Z88.5 Allergy status to narcotic agent
CPT/HCPCS: 74177; 80048; 80076; 81001; 83690; 85025; 96365; 96367; 96375; 96376; 99284; J0744; J2270; J2765; Q9967

== ENCOUNTER 2019-12-03 19:42 | Emergency (ER) | payer BC, MEDICAID, OTHER ==
[~2019-12-03] VITALS: Ht 157.5 cm; Wt 99.5 kg
[~2019-12-03 19:42] MED LIST changes: +BUSP15TA47 PO; +CIPR-249 PO; +FLAG500T PO; +VIIB40TA PO
[2019-12-03] MEDS ORDERED: NS 1,000 ML IV ONE (20:30)
[2019-12-03 20:31] LABS: BASO % 0.4 % (0.0-1.0); EOS # 0.2 10^3/uL (0.0-0.5); EOS % 2.5 % (0.0-3.0); HEMATOCRIT 40.6 % (36.0-47.0); HEMOGLOBIN 13.2 g/dl (12.0-15.5); LYMPH # 2.3 10^3/uL (1.5-5.0); MEAN CORPUSCULAR HEMOGLOBIN 30.3 pg (27.0-33.0); MEAN CORPUSCULAR HGB CONC 32.5 g/dl (32.0-36.5); MEAN CORPUSCULAR VOLUME 93.3 fl (80.0-96.0); MONO # 0.5 10^3/uL (0.0-0.8); MONO % 7.9 % (0.0-5.0); NEUTROPHILS # 3.7 10^3/uL (1.5-8.5); NEUTROPHILS % 54.8 % (36.0-66.0); PLATELET COUNT, AUTOMATED 267 10^3/uL (150-450); RED BLOOD COUNT 4.35 10^6/uL (4.00-5.40); WHITE BLOOD COUNT 6.7 10^3/uL (4.0-10.0)
[2019-12-03] MEDS ORDERED: ISOVUE-370 76% 100ML VIAL As Ordered ONE (20:39)
[2019-12-03 20:59] LABS: ALBUMIN 3.3 GM/DL (3.2-5.2); ALT/SGPT 19 U/L (12-78); BILIRUBIN,DIRECT < 0.1 MG/DL (0.0-0.2); BILIRUBIN,TOTAL 0.1 MG/DL (0.2-1.0); CK-MB VALUE MASS 1.8 NG/ML (<3.6); CPK CREATINE PHOSPHOKINASE 170 U/L (26-192); LIPASE 70 U/L (73-393); MB/CK RELATIVE INDEX 1.06 (< OR =4); TOTAL PROTEIN 6.7 GM/DL (6.4-8.2); TROPONIN I < 0.02 NG/ML (< 0.10)
--- NOTE | 2019-12-03 21:21 | REPVR ---
PROCEDURE INFORMATION: Exam: CT Abdomen And Pelvis With Contrast Exam date and time: 12/03/2019 8:53 PM Age: 49 years old Clinical indication: Abdominal pain; Other: Abd pain with bloating TECHNIQUE: Imaging protocol: Computed tomography of the abdomen and pelvis with intravenous contrast. Radiation optimization: All CT scans at this facility use at least one of these dose optimization techniques: automated exposure control; mA and/or kV adjustment per patient size (includes targeted exams where dose is matched to clinical indication); or iterative reconstruction. Contrast material: ISOVUE 370; Contrast volume: 100 ml; Contrast route: INTRAVENOUS (IV); COMPARISON: CT ABD/PEL W/IV CONTRAST ONLY 11/24/2019 3:03 AM FINDINGS: Liver: The liver attenuation is 54 Hounsfield units and the spleen is 119 Hounsfield units. Gallbladder and bile ducts: The gallbladder is contracted with no stones. Pancreas: Normal. No ductal dilation. Spleen: Normal. No splenomegaly. Adrenals: Slight fullness of the left adrenal which is unchanged from the prior study. A 10 mm nodule with a Hounsfield measurement of 71 is not excluded. Kidneys and ureters: Normal. No hydronephrosis. Stomach and bowel: Borderline distention of the stomach with food material. Mild colonic diverticulosis without diverticulitis. Appendix: A normal appendix is seen. Intraperitoneal space: Unremarkable. No free air. No significant fluid collection. Vasculature: Unremarkable. No abdominal aortic aneurysm. Lymph nodes: Unremarkable. No enlarged lymph nodes. Bladder: Unremarkable as visualized. Reproductive: Unremarkable as visualized. Bones/joints: Unremarkable. No acute fracture. Soft tissues: Minimal fat filled umbilical hernia. IMPRESSION: 1. There has been little change from 11/24/2019. No acute interval process is identified. 2. Fatty infiltration of the liver. 3. There is borderline distention of the stomach which in view of a contracted gallbladder likely reflects recent ingestion. 4. Question of 1 cm nodule of the left adrenal which is unchanged. 5. Mild colonic diverticulosis without diverticulitis. Electronically signed by: Bhavin Rivera On 12/03/2019 21:21:39 PM
[2019-12-03] MEDS ORDERED: GI COCKTAIL 50ML BTL(HYOSCYAMINE/MAALOX/LIDOCAINE VISCOUS)(1:3:1) PO ONE (22:45)
[2019-12-03] MEDS ORDERED: SIMETHICONE 80 MG CHEW TAB PO ONE (23:15)
[2019-12-03 23:53] VITALS: BP 126/65
--- NOTE | 2019-12-27 10:20 | ECGEPIP ---
[facility] - ED Test Date: 2019-12-03 Pat Name: STEPHANIE HARDIN Department: Room: - Gender: Female Dandy Operator: peter : 1970 Requested By: DONOVAN MCGRATH Order Number: [id number] Reading MD: Oh Trevino-Weeks Measurements Intervals [place] Rate: 86 P: 56 VA: 169 QRS: -34 QRSD: 84 T: 38 QT: 386 QTc: 462 Interpretive Statements SINUS RHYTHM MARKED LEFT AXIS DEVIATION LOW QRS VOLTAGE IN PRECORDIAL LEADS POSSIBLE ANTERIOR MYOCARDIAL INFARCTION, PROBABLY OLD ABNORMAL ECG NONSPECIFIC ST T CHANGE NO PRIOR DUE TO DOWNTIME SEE SCANNED DOWNTIME REPORT
== END 2019-12-03 23:55 | disposition home or self-care (01) ==
LOC: M ED 19:42
DX: R10.9 Unspecified abdominal pain (principal); K76.0 Fatty (change of) liver, not elsewhere classified; K57.30 Diverticulosis of large intestine without perforation or abscess without bleeding; E27.9 Disorder of adrenal gland, unspecified; R94.31 Abnormal electrocardiogram [ECG] [EKG]; E03.9 Hypothyroidism, unspecified; Z79.899 Other long term (current) drug therapy; Z88.5 Allergy status to narcotic agent
CPT/HCPCS: 74177; 80047; 80076; 81001; 82550; 82553; 83690; 84484; 85025; 87086; 93005; 96360; 99284; Q9967

== ENCOUNTER → 2019-12-04 | Outpatient (REF) | payer BC, MEDICAID, OTHER | LOC: M LAB 12:54 | PROVIDERS: ATTEND Nurse Practitioner Family | DX: R19.7 Diarrhea, unspecified (principal) ==

== ENCOUNTER → 2020-01-05 | Outpatient (REF) | payer BC, MEDICAID, OTHER ==
[2020-01-05 14:44] LABS: HEPATITIS A ANTIBODY IGM NEGATIVE (NEGATIVE); HEPATITIS B CORE ANTIBODY IGM NEGATIVE (NEGATIVE); HEPATITIS B SURFACE ANTIGEN NEGATIVE (NEGATIVE)
[2020-01-05 14:45] LABS: HEPATITIS C VIRUS ABY INDEX > 11.0 INDEX (<0.8)
== END ==
LOC: M LAB REF 12:05
PROVIDERS: ATTEND Physician Assistant Medical
DX: Z12.31 Encounter for screening mammogram for malignant neoplasm of breast (principal); B17.9 Acute viral hepatitis, unspecified

== ENCOUNTER → 2020-04-24 | Outpatient (REF) | payer BC ==
[~2020-04-24] MED LIST changes: +CYAN500T14 PO; -CYAN500T8 PO
[2020-04-25 07:04] LABS: H PYLORI QUALITATIVE IgG NEGATIVE (NEGATIVE)
== END ==
LOC: M LAB REF 16:12
PROVIDERS: ATTEND Physician Assistant Medical
DX: R10.13 Epigastric pain (principal)

== ENCOUNTER → 2020-05-18 | Outpatient (REF) | payer BC, MEDICAID | LOC: M LAB REF 15:07 | PROVIDERS: ATTEND Internal Medicine Gastroenterology | DX: R10.13 Epigastric pain (principal); R12 Heartburn; R19.4 Change in bowel habit ==

== ENCOUNTER → 2020-06-08 | Outpatient (CLI) | payer BC ==
--- NOTE | 2020-06-08 10:54 | REP ---
INDICATION: LOWER ABDOMINAL PAIN COMPARISON: None. TECHNIQUE: Transabdominal pelvic ultrasound followed by transvaginal examination for better evaluation of the endometrium and adnexa. FINDINGS: Bladder is unremarkable and measures 11.5 x 7.7 x 6.4 cm. Anteverted uterus measures 8.1 x 3.9 x 4.6 cm. The endometrial complex measures 6 mm thickness. There appears to be an anterior fibroid measuring 2.3 x 2.1 x 1.8 cm. Ovaries are not visualized on either transabdominal or transvaginal approach due to overlying bowel gas and body habitus. No pelvic fluid. IMPRESSION: Limited examination. Anterior 2.3 cm fibroid noted. Ovaries not visualized. <Electronically signed by James Rain > 06/08/20 1029
== END ==
LOC: M RAD 09:46
PROVIDERS: ATTEND Physician Assistant Medical
DX: D25.9 Leiomyoma of uterus, unspecified (principal); R10.30 Lower abdominal pain, unspecified

== ENCOUNTER → 2022-02-24 | Outpatient (CLI) | payer BC | LOC: M WHC 08:17 | PROVIDERS: ATTEND Physician Assistant Medical | DX: Z12.31 Encounter for screening mammogram for malignant neoplasm of breast (principal) ==

== ENCOUNTER → 2022-03-19 | Outpatient (REF) | payer BC ==
[2022-03-19 18:08] LABS: FOLLICLE STIMULATING HORMONE 54.3 mIU/ML; PROGESTERONE 0.21 NG/ML
== END ==
LOC: M LAB REF 16:12
PROVIDERS: ATTEND Physician Assistant Medical
DX: N95.1 Menopausal and female climacteric states (principal)

== ENCOUNTER → 2022-04-03 | Outpatient (CLI) | payer BC | LOC: M WHC 08:58 | PROVIDERS: ATTEND Physician Assistant Medical | DX: R92.8 Other abnormal and inconclusive findings on diagnostic imaging of breast (principal) | CPT/HCPCS: 77065; G0279 ==

== ENCOUNTER → 2022-04-15 | Outpatient (REF) | payer BC ==
[2022-04-15 13:36] LABS: IRON (FE) 92 UG/DL (50-170); PERCENT SATURATION 31.9 % (13.2-45.0); TOTAL IRON BINDING CAPACITY 288 UG/DL (250-425)
[2022-04-15 13:37] LABS: FOLATE > 24.0 NG/ML (>5.4); TOTAL 25(OH) VITAMIN D 44.2 NG/ML (20.0-100.0); VITAMIN B12 LEVEL 558 PG/ML (211-911)
[2022-04-15 13:38] LABS: FERRITIN 102.7 NG/ML (7.3-270.7)
== END ==
LOC: M LAB REF 12:17
PROVIDERS: ATTEND Physician Assistant Medical
DX: K91.2 Postsurgical malabsorption, not elsewhere classified (principal)

== ENCOUNTER 2022-05-07 19:08 | Emergency (ER) | payer BC ==
[~2022-05-07] VITALS: Ht 157.5 cm; Wt 75.6 kg
[2022-05-07] MEDS ORDERED: LEXA1TAB PO (19:17)
[2022-05-07] MEDS ORDERED: ACETAMINOPHEN TAB 650MG DOSE (2X325MG) PO ONE (23:45)
[2022-05-07 23:54] LABS: BASO % 0.3 % (0.0-1.0); EOS # 0.1 10^3/uL (0.0-0.5); EOS % 0.7 % (0.0-3.0); HEMATOCRIT 40.9 % (36.0-47.0); HEMOGLOBIN 13.4 g/dl (12.0-15.5); LYMPH # 2.1 10^3/uL (1.5-5.0); LYMPH % 22.8 % (24.0-44.0); MEAN CORPUSCULAR HEMOGLOBIN 30.1 pg (27.0-33.0); MEAN CORPUSCULAR HGB CONC 32.8 g/dl (32.0-36.5); MEAN CORPUSCULAR VOLUME 91.9 fl (80.0-96.0); MONO # 0.5 10^3/uL (0.0-0.8); MONO % 5.8 % (2.0-8.0); NEUTROPHILS # 6.3 10^3/uL (1.5-8.5); NEUTROPHILS % 70.2 % (36.0-66.0); RED BLOOD COUNT 4.45 10^6/uL (4.00-5.40)
[2022-05-08] MEDS ORDERED: NS 1,000 ML IV ONE (00:15)
[2022-05-08] MEDS ORDERED: ONDANSETRON 4MG 2ML VIAL IV ONE (00:15)
[2022-05-08 00:23] VITALS: BP 118/73
[2022-05-08 00:54] LABS: LIPASE 22 U/L (12-53)
[2022-05-08 01:00] LABS: ALBUMIN 3.3 G/DL (3.2-5.2); ALKALINE PHOSPHATASE 120 U/L (46-116); ALT/SGPT 22 U/L (7.0-40); AST/SGOT 31 U/L (<34); BILIRUBIN,TOTAL 0.5 MG/DL (0.3-1.2); BLOOD UREA NITROGEN 10 MG/DL (9-23); CALCIUM LEVEL 8.8 MG/DL (8.5-10.1); CARBON DIOXIDE LEVEL 24 MMOL/L (20-31); CHLORIDE LEVEL 103 MMOL/L (98-107); CREATININE FOR GFR 0.54 MG/DL (0.55-1.30); GLOMERULAR FILTRATION RATE > 60.0 (>51); GLUCOSE, FASTING 103 MG/DL (60-100); POTASSIUM SERUM 4.4 MMOL/L (3.5-5.1); SODIUM LEVEL 137 MMOL/L (136-145); TOTAL PROTEIN 6.8 G/DL (5.7-8.2)
[2022-05-08] MEDS ORDERED: cefTRIAXone SOD 1 GM in D5W MINI-BAG PLUS 50 ML IV ONE (01:40)
[2022-05-08] MEDS ORDERED: CIPR-249 PO (02:00)
[2022-05-08] MEDS ORDERED: METR-265 PO (02:00)
[2022-05-08] MEDS ORDERED: KETOROLAC 30 MG/ML 1ML VIAL IV ONE (02:00)
== END 2022-05-08 02:31 | disposition home or self-care (01) ==
LOC: M ED 19:08
DX: K57.32 Diverticulitis of large intestine without perforation or abscess without bleeding (principal); Z79.899 Other long term (current) drug therapy; Z87.19 Personal history of other diseases of the digestive system; Z88.5 Allergy status to narcotic agent; Z98.84 Bariatric surgery status; Z98.890 Other specified postprocedural states; Z98.51 Tubal ligation status
CPT/HCPCS: 74176; 80053; 81000; 83605; 83690; 85025; 87086; 96374; 96375; 99284; J0696; J1885

== ENCOUNTER → 2022-07-18 | Outpatient (CLI) | payer BC ==
[~2022-07-18] MED LIST changes: +LEXA1TAB PO; +METR-265 PO
== END ==
LOC: M SLEEP HO 13:22
PROVIDERS: ATTEND Nurse Practitioner Family
DX: G47.33 Obstructive sleep apnea (adult) (pediatric) (principal)

== ENCOUNTER → 2022-08-04 | Outpatient (REF) ==
[2022-08-04 13:11] LABS: RSV AMPLIFICATION NEGATIVE (NEGATIVE)
== END ==
LOC: M EMP 10:15
PROVIDERS: ATTEND Family Medicine
DX: Z20.822 Contact with and (suspected) exposure to COVID-19 (principal)

== ENCOUNTER → 2022-10-08 | Outpatient (REF) | payer BC ==
[2022-10-08 13:24] LABS: FERRITIN 101.6 NG/ML (7.3-270.7); PERCENT SATURATION 30.9 % (13.2-45.0)
[2022-10-08 13:25] LABS: TOTAL 25(OH) VITAMIN D 40.9 NG/ML (20.0-100.0)
== END ==
LOC: M LAB REF 12:17
PROVIDERS: ATTEND Physician Assistant Medical
DX: K57.30 Diverticulosis of large intestine without perforation or abscess without bleeding (principal); Z98.84 Bariatric surgery status

== ENCOUNTER → 2023-01-23 | Outpatient (REF) | LOC: M EMP 10:52 | PROVIDERS: ATTEND Family Medicine | DX: Z20.822 Contact with and (suspected) exposure to COVID-19 (principal) ==

== ENCOUNTER → 2023-04-05 | Outpatient (REF) | payer BC ==
[2023-04-05 18:36] LABS: APPEARANCE, URINE HAZY (CLEAR); BACTERIA, URINE AUTO NEGATIVE (NEGATIVE); BILIRUBIN, URINE AUTO NEGATIVE (NEGATIVE); BLOOD, URINE BLOOD NEGATIVE (NEGATIVE); CALCIUM OXALATE CRYSTALS SMALL; COLOR, URINE YELLOW (YELLOW); GLUCOSE, URINE (UA) AUTO NEGATIVE (NEGATIVE); KETONE, URINE AUTO NEGATIVE (NEGATIVE); LEUKOCYTE ESTERASE, URINE AUTO NEGATIVE (NEGATIVE); MUCUS, URINE SMALL (NEGATIVE); NITRITE, URINE AUTO NEGATIVE (NEGATIVE); PROTEIN, URINE AUTO NEGATIVE (NEGATIVE); RBC, URINE AUTO 7 /HPF (0-3); SQUAMOUS EPITHELIAL CELL UR AU 0 /HPF (0-6); UROBILINOGEN, URINE AUTO 0.2 mg/dL (0.0-2.0); WBC, URINE AUTO 2 /HPF (0-3)
== END ==
LOC: M LAB REF 17:52
PROVIDERS: ATTEND Physician Assistant Medical
DX: N39.0 Urinary tract infection, site not specified (principal)

== ENCOUNTER → 2023-05-08 | Outpatient (CLI) | payer BC | LOC: M PLAIMG 13:23 | PROVIDERS: ATTEND Physician Assistant Medical | DX: R35.0 Frequency of micturition (principal); R10.9 Unspecified abdominal pain; K57.30 Diverticulosis of large intestine without perforation or abscess without bleeding ==

== ENCOUNTER → 2023-07-01 | Outpatient (REF) | payer BC | LOC: M SFHCWAGY 10:47 | PROVIDERS: ATTEND Nurse Practitioner Family | DX: Z12.4 Encounter for screening for malignant neoplasm of cervix (principal) | CPT/HCPCS: 87624; G0123 ==

== ENCOUNTER → 2023-11-30 | Outpatient (REF) | LOC: M EMP 09:05 | PROVIDERS: ATTEND Family Medicine | DX: Z11.52 Encounter for screening for COVID-19 (principal) ==

== ENCOUNTER → 2023-12-30 | Outpatient (CLI) | payer BC ==
[2023-12-30 11:22] LABS: EOS # 0.2 10^3/uL (0.0-0.5); EOS % 4.1 % (0.0-3.0); HEMATOCRIT 40.5 % (36.0-47.0); HEMOGLOBIN 12.9 g/dl (12.0-15.5); LYMPH # 1.8 10^3/uL (1.5-5.0); LYMPH % 47.2 % (24.0-44.0); MEAN CORPUSCULAR HEMOGLOBIN 29.6 pg (27.0-33.0); MEAN CORPUSCULAR HGB CONC 31.9 g/dl (32.0-36.5); MEAN CORPUSCULAR VOLUME 92.9 fl (80.0-96.0); MONO # 0.3 10^3/uL (0.0-0.8); MONO % 7.2 % (2.0-8.0); NEUTROPHILS # 1.6 10^3/uL (1.5-8.5); NEUTROPHILS % 40.2 % (36.0-66.0); PLATELET COUNT, AUTOMATED 166 10^3/uL (150-450); RED BLOOD COUNT 4.36 10^6/uL (4.00-5.40); WHITE BLOOD COUNT 3.9 10^3/uL (4.0-10.0)
[2023-12-30 11:47] LABS: ALBUMIN 3.5 G/DL (3.2-5.2); ALKALINE PHOSPHATASE 96 U/L (46-116); ALT/SGPT 14 U/L (7.0-40); AST/SGOT < 8 U/L (<34); BILIRUBIN,TOTAL 0.4 MG/DL (0.3-1.2); BLOOD UREA NITROGEN 11 MG/DL (9-23); CALCIUM LEVEL 9.1 MG/DL (8.5-10.1); CARBON DIOXIDE LEVEL 28 MMOL/L (20-31); CHLORIDE LEVEL 108 MMOL/L (98-107); CHOLESTEROL LEVEL 213 MG/DL (<200); CHOLESTEROL RISK RATIO 3.52 (<5); CREATININE FOR GFR 0.62 MG/DL (0.55-1.30); GLOMERULAR FILTRATION RATE > 60.0 (>51); GLUCOSE, FASTING 85 MG/DL (60-100); HDL CHOLESTEROL 60.5 MG/DL (>40); IRON (FE) 95 UG/DL (50-170); LDL CHOLESTEROL 136.9 MG/DL (<100); NON-HDL-C 152.5 MG/DL; PERCENT SATURATION 30.7 % (13.2-45.0); POTASSIUM SERUM 4.2 MMOL/L (3.5-5.1); SODIUM LEVEL 140 MMOL/L (136-145); TOTAL IRON BINDING CAPACITY 309 UG/DL (250-425); TOTAL PROTEIN 6.5 G/DL (5.7-8.2); TRIGLYCERIDES LEVEL 78 MG/DL (<150)
[2023-12-30 11:48] LABS: THYROID STIMULATING HORMONE 2.168 uIU/ML (0.55-4.78)
[2023-12-30 11:49] LABS: VITAMIN B12 LEVEL 452 PG/ML (211-911)
[2023-12-30 12:23] LABS: HEPATITIS B SURFACE ANTIGEN NEGATIVE (NEGATIVE)
[2023-12-30 12:45] LABS: HEPATITIS B CORE ANTIBODY IGM NEGATIVE (NEGATIVE)
[2023-12-30 13:01] LABS: FREE T4 0.94 NG/DL (0.89-1.76)
[2023-12-31 10:08] LABS: HCV RNA QUANTITATION <15 NOT DETECTED IU/mL (NOT DETECTED); HCV RNA log10 <1.18 NOT DETECTED Log IU/mL (NOT DETECTED)
== END ==
LOC: M LAB 09:37
PROVIDERS: ATTEND Nurse Practitioner Family
DX: Z98.84 Bariatric surgery status (principal); R53.83 Other fatigue; B19.20 Unspecified viral hepatitis C without hepatic coma; R73.01 Impaired fasting glucose; E78.2 Mixed hyperlipidemia; E55.9 Vitamin D deficiency, unspecified

== ENCOUNTER → 2024-01-06 | Outpatient (CLI) | payer BC ==
[~2024-01-06] MED LIST changes: +ISOVUE-370 76% 100ML VIAL ONE
== END ==
LOC: M PLAIMG 08:08
PROVIDERS: ATTEND Nurse Practitioner Family
DX: R91.8 Other nonspecific abnormal finding of lung field (principal); Z76.89 Persons encountering health services in other specified circumstances
CPT/HCPCS: 71260; Q9967

== ENCOUNTER → 2024-02-17 | Outpatient (CLI) | payer BC ==
[~2024-02-17] MED LIST changes: -ISOVUE-370 76% 100ML VIAL ONE
== END ==
LOC: M WHC 07:46
PROVIDERS: ATTEND Nurse Practitioner Family
DX: Z12.31 Encounter for screening mammogram for malignant neoplasm of breast (principal); R92.343 Mammographic extreme density, bilateral breasts

== ENCOUNTER → 2024-05-18 | Outpatient (CLI) | payer BC | LOC: M SLEEP 20:00 | PROVIDERS: ATTEND Physician Assistant | DX: G47.33 Obstructive sleep apnea (adult) (pediatric) (principal) ==

== ENCOUNTER → 2024-06-06 | Outpatient (CLI) | payer BC ==
[2024-06-07 16:29] LABS: HERPES ZOSTER, VARICELLA IgG 9.91 S/CO (>=1.00); RUBEOLA IgG ANTIBODY > 300.00 AU/mL (>16.49)
[2024-06-08 10:22] LABS: QuantiFERON-TB Gold Plus NEGATIVE (NEGATIVE)
== END ==
LOC: M PLALAB 09:00
PROVIDERS: ATTEND Nurse Practitioner Family
DX: Z01.84 Encounter for antibody response examination (principal); Z11.1 Encounter for screening for respiratory tuberculosis

== ENCOUNTER → 2025-01-06 | Outpatient (CLI) | payer BC ==
[2025-01-06 13:06] LABS: BASO # 0.0 10^3/uL (0.0-0.2); BASO % 0.9 % (0.0-1.0); EOS # 0.2 10^3/uL (0.0-0.5); EOS % 3.3 % (0.0-3.0); LYMPH # 2.2 10^3/uL (1.5-5.0); LYMPH % 48.8 % (24.0-44.0); MONO # 0.3 10^3/uL (0.0-0.8); MONO % 6.8 % (2.0-8.0); NEUTROPHILS # 1.8 10^3/uL (1.5-8.5); NEUTROPHILS % 40.2 % (36.0-66.0); PLATELET COUNT, AUTOMATED 187 10^3/uL (150-450)
[2025-01-06 13:16] LABS: ALT/SGPT 15 U/L (7.0-40); AST/SGOT 16 U/L (<34); CALCIUM LEVEL 8.9 MG/DL (8.5-10.1); CARBON DIOXIDE LEVEL 29 MMOL/L (20-31); CHLORIDE LEVEL 105 MMOL/L (98-107); CHOLESTEROL LEVEL 238 MG/DL (<200); CHOLESTEROL RISK RATIO 3.78 (<5); CREATININE FOR GFR 0.61 MG/DL (0.55-1.30); GLOMERULAR FILTRATION RATE > 90.0 (>51); IRON (FE) 77 UG/DL (50-170); LDL CHOLESTEROL 159.0 MG/DL (<100); NON-HDL-C 175.2 MG/DL; POTASSIUM SERUM 4.0 MMOL/L (3.5-5.1); SODIUM LEVEL 142 MMOL/L (136-145); TRIGLYCERIDES LEVEL 81 MG/DL (<150)
[2025-01-06 13:18] LABS: VITAMIN B12 LEVEL 667 PG/ML (211-911)
[2025-01-06 21:28] LABS: ESTIMATED AVERAGE GLUCOSE 97.0 MG/DL (60-110)
== END ==
LOC: M LAB 12:11
PROVIDERS: ATTEND Nurse Practitioner Family
DX: Z98.84 Bariatric surgery status (principal); F41.9 Anxiety disorder, unspecified; R73.01 Impaired fasting glucose; E78.2 Mixed hyperlipidemia; E55.9 Vitamin D deficiency, unspecified; J30.2 Other seasonal allergic rhinitis

== ENCOUNTER → 2025-01-25 | Outpatient (CLI) | payer BC | LOC: M PLAIMG 16:12 | PROVIDERS: ATTEND Nurse Practitioner Adult Health | DX: M54.50 Low back pain, unspecified (principal) ==

== ENCOUNTER 2025-02-13 09:20 | Emergency (ER) | payer OTHER, BC ==
[~2025-02-13] VITALS: Ht 157.5 cm; Wt 77.4 kg
[2025-02-13] MEDS ORDERED: LEXA1TAB2 (09:33)
[2025-02-13] MEDS ORDERED: PREM0.3T2 (09:33)
[2025-02-13 09:57] LABS: BASO # 0.0 10^3/uL (0.0-0.2); BASO % 0.9 % (0.0-1.0); EOS # 0.2 10^3/uL (0.0-0.5); EOS % 4.5 % (0.0-3.0); LYMPH # 2.1 10^3/uL (1.5-5.0); LYMPH % 44.6 % (24.0-44.0); MONO # 0.3 10^3/uL (0.0-0.8); MONO % 6.4 % (2.0-8.0); NEUTROPHILS # 2.0 10^3/uL (1.5-8.5); NEUTROPHILS % 43.4 % (36.0-66.0); PLATELET COUNT, AUTOMATED 225 10^3/uL (150-450)
[2025-02-13 10:21] LABS: ALT/SGPT 18 U/L (7.0-40); AST/SGOT 16 U/L (<34); CALCIUM LEVEL 8.9 MG/DL (8.5-10.1); CARBON DIOXIDE LEVEL 27 MMOL/L (20-31); CHLORIDE LEVEL 107 MMOL/L (98-107); CREATININE FOR GFR 0.62 MG/DL (0.55-1.30); GLOMERULAR FILTRATION RATE > 90.0 (>51); POTASSIUM SERUM 3.9 MMOL/L (3.5-5.1); SODIUM LEVEL 141 MMOL/L (136-145)
[2025-02-13 10:23] LABS: HEPATITIS B SURFACE ANTIBODY POSITIVE (POSITIVE)
[2025-02-13 10:38] VITALS: BP 118/65; TEMP 96.2; O2SAT 100
[2025-02-13 10:47] LABS: HIV SCREEN CENTAUR EXPOSED NEGATIVE (NEGATIVE)
[2025-02-13 11:06] LABS: HEPATITIS C VIRUS ABY INDEX 5.58 INDEX (<0.8)
[2025-02-15 16:58] LABS: HCV RNA QUANTITATION <15 NOT DETECTED IU/mL (NOT DETECTED); HCV RNA log10 <1.18 NOT DETECTED Log IU/mL (NOT DETECTED)
== END 2025-02-13 10:40 | disposition home or self-care (01) ==
LOC: M ED 09:20
DX: Z77.21 Contact with and (suspected) exposure to potentially hazardous body fluids (principal); G47.33 Obstructive sleep apnea (adult) (pediatric); F41.9 Anxiety disorder, unspecified; F32.A Depression, unspecified; Z88.5 Allergy status to narcotic agent; Z79.899 Other long term (current) drug therapy; Z79.810 Long term (current) use of selective estrogen receptor modulators (SERMs)

== ENCOUNTER → 2025-03-22 | Outpatient (CLI) | payer BC ==
[~2025-03-22] MED LIST changes: +LEXA1TAB2; +PREM0.3T2
== END ==
LOC: M WHC 07:34
PROVIDERS: ATTEND Nurse Practitioner Family
DX: Z12.31 Encounter for screening mammogram for malignant neoplasm of breast (principal); R92.333 Mammographic heterogeneous density, bilateral breasts